=== PATIENT | female | born 1965 | race American Indian/Alaskan Native ===

== ENCOUNTER 2018-07-02 09:36 | Outpatient (CLI) | payer MEDICARE ==
--- NOTE | 2018-07-02 10:17 | Cat Scan Report ---
CT ABDOMEN AND PELVIS WITHOUT CONTRAST INDICATION: Calculus of kidney. COMPARISON: None similar. FINDINGS: Noncontrast abdomen and pelvis CT performed. LUNG BASES: Nonspecific distal esophageal mild wall prominence/thickening, not excluded for gastroesophageal reflux and/or hiatal hernia, amongst others. Minimal anterior pericardial thickening or fluid measuring 5 mm AP, axial series 2, image 19. ABDOMEN: Please note that sensitivity to detect small visceral lesions is limited due to the absence of intravenous or oral contrast. Left hepatic lobe tip wraps around the spleen in the left upper quadrant. Otherwise grossly unremarkable unenhanced liver, spleen, gallbladder, pancreas, adrenals and IVC. Nonaneurysmal abdominal aorta, though with rightward tortuosity. No ascites or size significant adenopathy, to the extent assessed. Nonopacified GI tract evaluation limited, though grossly nonobstructive. Cecum slightly low lying with a normal appendix seen extending into the right hemipelvis. Mild stool throughout colon. Tiny fat containing umbilical hernia. Right kidney nonhydronephrotic and demonstrates a 5 mm interpolar calculus. Left renal pelvis and proximal ureter prominent/dilated, leading up to a 6 mm calculus, axial image 85, series 2. No significant left hydronephrosis suspected with further distal left ureter noted unremarkable. PELVIS: Approximately 2.7 cm right adnexal/ovarian simple cyst. Grossly unremarkable left adnexa/ovary, urinary bladder and the rectosigmoid. Uterus surgically absent. No free fluid or significant adenopathy. Moderate to severe L5-S1 disc narrowing with slight vacuum phenomenon and degenerative spurring. CONCLUSION: Approximately 6 mm left proximal ureteral calculus as also a 5 mm nonobstructing right renal calculus noted with various other incidental findings, as above. Please correlate. Thank you for the opportunity to participate in this patient's care.
== END 2018-07-02 09:37 | disposition home or self-care (01) ==
LOC: CT 09:36
PROVIDERS: ATTEND Urology
DX: N20.0 Calculus of kidney (principal)
CPT/HCPCS: 74176